=== PATIENT | female | born 1990 | race Two or more races ===

== ENCOUNTER 2020-08-20 19:57 | Emergency (ER) | payer SELFPAY ==
[2020-08-20] MEDS ORDERED: Sodium Chloride 0.9% 10 ML Syringe FLUSH PRN (20:32)
[2020-08-20] MEDS ORDERED: Metoclopramide 10 MG/2 ML SDV IVPUSH ONE (20:34)
[2020-08-20] MEDS ORDERED: diphenhydrAMINE 50 MG/ML SDV IVPUSH ONE (20:34)
[2020-08-20] MEDS ORDERED: Ketorolac 30 MG/ML SDV IVPUSH ONE (20:34)
[2020-08-20] MEDS ORDERED: Sodium Chloride 0.9% 1,000 ML IV ONE (20:34)
--- NOTE | 2020-08-20 20:41 | EDM.PDOC ---
ED HPI GENERAL MEDICAL PROBLEM - General Chief Complaint: Chest Pain Stated Complaint: CHEST PRESSURE/PAIN IN UPPER BACK Time Seen by Provider: 08/20/20 20:17 Source of Information: Reports: Patient, RN Notes Reviewed History Limitations: Reports: Language Barrier (pt is primarily portuguese speaking but is in room and does translate well) - History of Present Illness INITIAL COMMENTS - FREE TEXT/NARRATIVE: Patient is a 29-year-old female who presents to the ED for her left sided chest pressure, upper back pressure and migraine. Patient notes this has been going on for the past 2 weeks, she is complaining of left-sided chest pressure that seems to radiate down her arms at times. She also notes some feelings in her arm like it is numb and tingling. She got some mild nausea today. She has been using Motrin at home, this seems to help calm it down but does not take it away fully. thinks she is on control but she does not smoke, and she has no family history of heart issues. She does note she has a history of migraines, and had a pretty intense one roughly 4 years ago, for which she had a CT and it demonstrated no abnormalities. Patient also notes that she has a family history of tumors in their heads. She has no regular provider. She is a fairly healthy person otherwise. The patient states that the headache is more of a head pressure, and feels like her head want to explode when it is at its worst. She denies any fevers or chills, cough or shortness of breath, or any vomiting or diarrhea. 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 (see below) Chest Pain Score (Numeric/FACES): 4 Upper Back Pain Score (Numeric/FACES): 6 - Related Data Allergies Allergy/AdvReac Type Severity Reaction Status Date / Time No Known Allergies Allergy Verified 08/20/20 20:14 Home Meds: Home Meds Orphenadrine [Norflex] 100 mg PO BID PRN #20 tab 08/20/20 [Rx] Past Medical History Neurological History: Reports: Migraines Social & Family History - Tobacco Use Tobacco Use Status *Q: Never Tobacco User - Caffeine Use Caffeine Use: Reports: Coffee - Recreational Drug Use Recreational Drug Use: No ED ROS GENERAL - Review of Systems Review Of Systems: Comprehensive ROS is negative, except as noted in HPI. ED EXAM, GENERAL - Physical Exam Exam: See Below Exam Limited By: No Limitations General Appearance: Alert, WD/WN, No Apparent Distress Respiratory/Chest: No Respiratory Distress, Lungs Clear, Normal Breath Sounds, No Accessory Muscle Use, Chest Non-Tender Cardiovascular: Normal Peripheral Pulses, Regular Rate, Rhythm, No Murmur Peripheral Pulses: 2+: Radial (L), Radial (R) GI/Abdominal: Normal Bowel Sounds, Soft, Non-Tender, No Distention, No Mass Back Exam: Normal Inspection, Paraspinal Tenderness (point tenderness to the Left upper back, she states that this is the area of pain, small lump was palpated.) Extremities: Normal Inspection, Normal Capillary Refill Neurological: Alert, Oriented, Normal Cognition, No Motor/Sensory Deficits Psychiatric: Normal Affect, Normal Mood Skin Exam: Warm, Dry, Intact, Normal Color, No Rash #1 Interpretation EKG Date: 08/20/20 Time: 20:53 Rhythm: NSR Rate (Beats/Min): 75 Nancy: Normal P-Wave: Present QRS: Normal ST-T: Normal QT: Normal Comparison: NA - No Prior EKG EKG Interpretation Comments: No obvious ischemia or acute ST changes noted, reviewed by myself and Dr. Bingham. Course - Vital Signs Last Recorded V/S: Last Vital Signs Temp 97.7 F 08/20/20 20:20 Pulse 91 08/20/20 20:20 Resp 17 08/20/20 20:20 BP 134/87 08/20/20 20:20 Pulse Ox 100 08/20/20 20:20 - Orders/Labs/Meds Orders: Active Orders 24 hr Category Date Time Status EKG Documentation Completion [RC] STAT Care 08/20/20 20:32 Ordered Peripheral IV Care [RC] . DIRECTED Care 08/20/20 20:33 Ordered Chest 2V [CR] Stat Exams 08/20/20 20:33 Ordered Sodium Chloride 0.9% [Normal Saline] 1,000 ml Med 08/20/20 20:34 Active IV ONETIME Sodium Chloride 0.9% [Saline Flush] Med 08/20/20 20:32 Active 10 ml FLUSH ASDIRECTED PRN Peripheral IV Insertion Adult [OM.PC] Routine Oth 08/20/20 20:32 Ordered Medication Orders Sodium Chloride (Normal Saline) 1,000 mls @ 999 mls/hr IV ONETIME ONE Stop: 08/20/20 21:34 Last Admin: 08/20/20 20:44 Dose: 999 mls/hr Documented by: LILI Sodium Chloride (Saline Flush) 10 ml FLUSH ASDIRECTED PRN PRN Reason: Keep Vein Open Last Admin: 08/20/20 20:46 Dose: 10 ml Documented by: LILI Labs: Laboratory Tests 08/20/20 08/20/20 Range/Units 20:40 20:40 WBC 7.03 (3.98-10.04) K/mm3 RBC 4.62 (3.98-5.22) M/mm3 Hgb 14.0 (11.2-15.7) gm/dl Hct 41.4 (34.1-44.9) % MCV 89.6 (79.4-94.8) fl MCH 30.3 (25.6-32.2) pg MCHC 33.8 (32.2-35.5) g/dl RDW Std Deviation 41.5 (36.4-46.3) fL Plt Count 189 (182-369) K/mm3 MPV 11.0 (9.4-12.3) fl Neut % (Auto) 60.7 (34.0-71.1) % Lymph % (Auto) 32.6 (19.3-51.7) % Rich % (Auto) 6.1 (4.7-12.5) % Eos % (Auto) 0.3 L (0.7-5.8) Baso % (Auto) 0.3 (0.1-1.2) % Neut # (Auto) 4.27 (1.56-6.13) K/mm3 Lymph # (Auto) 2.29 (1.18-3.74) K/mm3 Rich # (Auto) 0.43 H (0.24-0.36) K/mm3 Eos # (Auto) 0.02 L (0.04-0.36) K/mm3 Baso # (Auto) 0.02 (0.01-0.08) K/mm3 Sodium 141 (136-145) mEq/L Potassium 3.6 (3.5-5.1) mEq/L Chloride 104 (98-107) mEq/L Carbon Dioxide 27 (21-32) mEq/L Anion Gap 13.6 (5-15) BUN 18 (7-18) mg/dL Creatinine 0.8 (0.55-1.02) mg/dL Est Cr Clr Drug Dosing 92.53 mL/min Estimated GFR (MDRD) > 60 (>60) mL/min BUN/Creatinine Ratio 22.5 H (14-18) Glucose 82 (74-106) mg/dL Calcium 9.2 (8.5-10.1) mg/dL Magnesium 2.1 (1.8-2.4) mg/dl Total Bilirubin 0.3 (0.2-1.0) mg/dL AST 16 (15-37) U/L ALT 24 (14-59) U/L Alkaline Phosphatase 93 (46-116) U/L Total Protein 8.3 H (6.4-8.2) g/dl Albumin 4.0 (3.4-5.0) g/dl Globulin 4.3 gm/dL Albumin/Globulin Ratio 0.9 L (1-2) Meds: Medications Generic Name Dose Route Start Last Admin Trade Name Freq PRN Reason Stop Dose Admin Sodium Chloride 1,000 mls @ 999 mls/hr 08/20/20 20:34 08/20/20 20:44 Normal Saline IV 08/20/20 21:34 999 mls/hr ONETIME ONE Administration Sodium Chloride 10 ml 08/20/20 20:32 08/20/20 20:46 Saline Flush FLUSH 10 ml ASDIRECTED PRN Administration Keep Vein Open Discontinued Medications Generic Name Dose Route Start Last Admin Trade Name Kyleq PRN Reason Stop Dose Admin Diphenhydramine HCl 25 mg 08/20/20 20:34 08/20/20 20:44 Benadryl IVPUSH 08/20/20 20:35 25 mg ONETIME ONE Administration Ketorolac Tromethamine 30 mg 08/20/20 20:34 08/20/20 20:46 Toradol IVPUSH 08/20/20 20:35 30 mg ONETIME ONE Administration Metoclopramide HCl 10 mg 08/20/20 20:34 08/20/20 20:45 Reglan IVPUSH 08/20/20 20:35 10 mg ONETIME ONE Administration - Re-Assessments/Exams Free Text/Narrative Re-Assessment/Exam: 08/20/20 20:43 Patient presents to the ED for the evaluation of her left chest pressure, and left upper back pain along with her headache. We will get a EKG, chest x-ray, basic labs, give her some medications for her headache. I do suspect that her left upper back issue has been causing the pressure in her chest. And then she has had a subsequent migraine to go along with this. 08/20/20 21:27 The patient's work-up is essentially normal, I do suspect that the patient's chest pressure has stemmed from her left upper back pain. She states that the headache is better with the medications given. We will discharge her home with general conservative recommendations and a prescription for Norflex as I do believe there is a possibility of muscle tension causing issues regarding her headache and upper back issues. Departure - Departure Time of Disposition: 21:28 Disposition: Home, Self-Care 01 Condition: Good Clinical Impression: Upper back pain on left side Headache Qualifiers: Headache type: tension-type Headache chronicity pattern: acute headache Intractability: not intractable Qualified Code(s): G44.209 - Tension-type headache, unspecified, not intractable - Discharge Information *PRESCRIPTION DRUG MONITORING PROGRAM REVIEWED*: No *COPY OF PRESCRIPTION DRUG MONITORING REPORT IN PATIENT [place]: No Instructions: Back Injury Prevention Referrals: PCP,None [Primary Care Provider] - Forms: ED Department Discharge Additional Instructions: You have been evaluated in the ED for your upper back pain, left chest pressure, and headache. Your x-ray demonstrated no acute abnormalities to suggest a possible pneumonia or other worrisome diagnoses. Your EKG was within normal limits, and your laboratory evaluation also was within normal limits. Please use ice/heat as tolerated to your back. I would recommend you follow-up with a chiropractor come Sunday morning, or if you can find one open tomorrow morning for further evaluation and management. You were given a prescription for muscle relaxers, please use 1 tab 2 times a day as needed for further muscle spasms. This was electronically prescribed to the [facility] located in [facility]. You may take Tylenol 500 mg or ibuprofen 600mg q6 hrs for pain relief. Please do so until you have a tolerable level of pain with activity. Do not exceed 4000mg Tylenol or 3200mg ibuprofen in a 24 hour time period. Please return to ED if your symptoms should change or worsen. Sepsis Event Note (ED) - Evaluation Sepsis Screening Result: No Definite Risk - Focused Exam Vital Signs: Vital Signs Temp Pulse Resp BP Pulse Ox 08/20/20 20:20 97.7 F 91 17 134/87 100 - My Orders Last 24 Hours: My Active Orders 08/20/20 20:32 EKG Documentation Completion [RC] STAT Sodium Chloride 0.9% [Saline Flush] 10 ml FLUSH ASDIRECTED PRN Peripheral IV Insertion Adult [OM.PC] Routine 08/20/20 20:33 Peripheral IV Care [RC] . DIRECTED Chest 2V [CR] Stat 08/20/20 20:34 Sodium Chloride 0.9% [Normal Saline] 1,000 ml IV ONETIME - Assessment/Plan Last 24 Hours: My Active Orders 08/20/20 20:32 EKG Documentation Completion [RC] STAT Sodium Chloride 0.9% [Saline Flush] 10 ml FLUSH ASDIRECTED PRN Peripheral IV Insertion Adult [OM.PC] Routine 08/20/20 20:33 Peripheral IV Care [RC] . DIRECTED Chest 2V [CR] Stat 08/20/20 20:34 Sodium Chloride 0.9% [Normal Saline] 1,000 ml IV ONETIME
--- NOTE | 2020-08-23 10:48 | CR ---
PROCEDURE INFORMATION: Exam: XR Chest, 2 Views Exam date and time: 08/20/2020 8:46 PM Age: 29 years old Clinical indication: Pain; Patient HX: Chest pressure onset few hours prior TECHNIQUE: Imaging protocol: XR of the chest Views: 2 views. COMPARISON: No relevant prior studies available. FINDINGS: Airway: The airways are patent. Lungs: The lungs are clear. Pleural space: No pleural effusions or pneumothorax. Heart/Mediastinum: The cardiomediastinal silhouette is normal. Bones/joints: The bones are normal. IMPRESSION: Normal chest x-ray without discrete findings to explain the patient's chest pressure. Thank you for allowing us to participate in the care of your patient. Dictated and Authenticated by: El Todd MD 08/20/2020 10:02 PM Central Time ([place] & [place]) [place]
== END 2020-08-20 21:44 | disposition home or self-care (01) ==
LOC: JD.ED 19:57
DX: M54.6 Pain in thoracic spine (principal); G44.209 Tension-type headache, unspecified, not intractable; R07.89 Other chest pain
CPT/HCPCS: 36415; 71046; 80053; 83735; 85025; 93005; 96374; 96375; 99284; J1200; J1885; J2765; J7030; 93010

== ENCOUNTER 2022-05-15 22:06 | Emergency (ER) | payer SELFPAY | END 2022-05-16 02:10 | disposition home or self-care (01) | LOC: JD.ED 22:06 | DX: R10.32 Left lower quadrant pain (principal); Z79.899 Other long term (current) drug therapy | CPT/HCPCS: 99282; 99283 ==

== ENCOUNTER 2024-01-01 16:55 | Emergency (ER) | payer SELFPAY ==
[2024-01-01 18:00] LABS: BASOPHILS PERCENT AUTO 0.7 % (0.0-1.0); EOSINOPHILS PERCENT AUTO 0.7 % (0.0-6.0); HEMATOCRIT 40.5 % (37.0-47.0); HEMOGLOBIN 13.7 gm/dl (12.0-16.0); IMMATURE GRAN ABSOLUTE AUTO 0.01 K/mm3 (0.00-0.05); IMMATURE GRAN PERCENT AUTO 0.2 % (0.0-0.4); LYMPHOCYTES ABSOLUTE AUTO 1.2 K/mm3 (1.0-4.8); LYMPHOCYTES PERCENT AUTO 26.6 % (24.0-44.0); MEAN CORPUSCULAR HEMOGLOBIN 31.6 pg (28.0-32.0); MEAN CORPUSCULAR HGB CONC 33.8 g/dl (32.0-36.0); MEAN CORPUSCULAR VOLUME 93.3 fl (83.0-99.0); MEAN PLATELET VOLUME 10.8 fl (9.4-12.3); MONOCYTES ABSOLUTE AUTO 0.3 K/mm3 (0.0-0.8); MONOCYTES PERCENT AUTO 7.2 % (0.0-8.0); NEUTROPHILS PERCENT AUTO 64.6 % (41.0-71.0); PLATELET COUNT,PLT 157 K/mm3 (150-400); RED BLOOD CELL COUNT 4.34 M/mm3 (4.10-5.30); WHITE BLOOD CELL COUNT,WBC 4.59 K/mm3 (3.9-11.3)
[2024-01-01] MEDS: diphenhydrAMINE 50 MG/ML SDV IVPUSH ONE (18:01)
[2024-01-01] MEDS: Ketorolac 30 MG/ML SDV IVPUSH ONE (18:01)
[2024-01-01] MEDS: Ondansetron 4 MG/2 ML SDV IVPUSH ONE (18:01)
[2024-01-01] MEDS: Sodium Chloride 0.9% 10 ML Syringe FLUSH PRN (18:02)
[2024-01-01] MEDS: Sodium Chloride 0.9% 1,000 ML IV STA (18:02)
[2024-01-01] MEDS: Cyclobenzaprine 10 MG Tab PO ONE (18:02)
[2024-01-01 18:32] LABS: ALBUMIN 4.2 g/dl (3.4-5.0); ANION GAP 16.2 (5-15); BILIRUBIN TOTAL 0.3 mg/dL (0.2-1.0); BUN/CREATININE RATIO 12.9 (14-18); C-REACTIVE PROTEIN 0.17 mg/dL (<0.30); CALCIUM 9.1 mg/dL (8.5-10.1); CREATININE 0.7 mg/dL (0.55-1.02); EST CRCL DRUG DOSING (CG) 106.01 mL/min; POTASSIUM,K 4.2 mEq/L (3.5-5.1); PROTEIN TOTAL,TP 8.4 g/dl (6.4-8.2); TSH 1.419 uIU/mL (0.358-3.74)
== END 2024-01-01 19:43 | disposition home or self-care (01) ==
LOC: JD.ED 16:55
DX: G44.209 Tension-type headache, unspecified, not intractable (principal); M54.2 Cervicalgia
CPT/HCPCS: 36415; 80053; 84443; 84703; 85025; 86140; 96374; 96375; 99284; A9270; J1200; J1885; J2405; J3490; J7030

== ENCOUNTER 2024-05-09 14:16 | Emergency (ER) | payer SELFPAY ==
[2024-05-09] MEDS: Dextrose 5%-0.9% NaCl 1,000 ML IV SCH (16:31)
[2024-05-09] MEDS: Ketorolac 30 MG/ML SDV IVPUSH ONE (16:31)
[2024-05-09] MEDS: diphenhydrAMINE 50 MG/ML SDV IVPUSH ONE (16:32)
[2024-05-09] MEDS: Metoclopramide 10 MG/2 ML SDV IVPUSH ONE (16:33)
[2024-05-09] MEDS: HYDROmorphone 1 MG/ML Syringe IVPUSH ONE (16:34)
[2024-05-09 17:31] LABS: BASOPHILS PERCENT AUTO 0.8 % (0.0-1.0); EOSINOPHILS PERCENT AUTO 0.3 % (0.0-6.0); HEMATOCRIT 38.2 % (37.0-47.0); HEMOGLOBIN 12.5 gm/dl (12.0-16.0); LYMPHOCYTES ABSOLUTE AUTO 1.2 K/mm3 (1.0-4.8); LYMPHOCYTES PERCENT AUTO 30.5 % (24.0-44.0); MEAN CORPUSCULAR HEMOGLOBIN 31.3 pg (28.0-32.0); MEAN CORPUSCULAR HGB CONC 32.7 g/dl (32.0-36.0); MEAN CORPUSCULAR VOLUME 95.7 fl (83.0-99.0); MEAN PLATELET VOLUME 11.4 fl (9.4-12.3); MONOCYTES ABSOLUTE AUTO 0.3 K/mm3 (0.0-0.8); MONOCYTES PERCENT AUTO 7.8 % (0.0-8.0); NEUTROPHILS ABSOLUTE AUTO 2.4 K/mm3 (1.8-7.7); NEUTROPHILS PERCENT AUTO 60.6 % (41.0-71.0); PLATELET COUNT,PLT 164 K/mm3 (150-400); RED BLOOD CELL COUNT 3.99 M/mm3 (4.10-5.30); WHITE BLOOD CELL COUNT,WBC 3.97 K/mm3 (3.9-11.3)
[2024-05-09 17:59] LABS: ALBUMIN 3.2 g/dl (3.4-5.0); ANION GAP 9.9 (5-15); BILIRUBIN TOTAL 0.2 mg/dL (0.2-1.0); CALCIUM 8.4 mg/dL (8.5-10.1); CREATININE 0.8 mg/dL (0.55-1.02); EST CRCL DRUG DOSING (CG) 78.37 mL/min; POTASSIUM,K 4.9 mEq/L (3.5-5.1); PROTEIN TOTAL,TP 6.5 g/dl (6.4-8.2)
[2024-05-09 18:43] LABS: CHOLESTEROL HDL 59 mg/dL (40-59); CHOLESTEROL LDL DIRECT 77 mg/dL (<100); CHOLESTEROL TOTAL 151 mg/dL (<200)
[2024-05-09 18:44] LABS: TSH 7.111 uIU/mL (0.358-3.74)
[2024-05-09] MEDS: LORazepam 2 MG/ML SDV IVPUSH ONE (19:21)
[2024-05-09] MEDS: ClonazePAM 1 MG Tab PO ONE (20:25)
== END 2024-05-09 20:31 | disposition home or self-care (01) ==
LOC: JD.ED 14:16
DX: G43.909 Migraine, unspecified, not intractable, without status migrainosus (principal); F41.0 Panic disorder [episodic paroxysmal anxiety]; F41.1 Generalized anxiety disorder; E03.9 Hypothyroidism, unspecified; F51.04 Psychophysiologic insomnia; M54.6 Pain in thoracic spine; Z79.890 Hormone replacement therapy; Z79.899 Other long term (current) drug therapy
CPT/HCPCS: 36415; 80053; 82465; 82947; 83036; 83718; 83721; 84443; 85025; 96361; 96374; 96375; 99284; A9270; J1170; J1200; J1885; J2060; J2765; J7042

== ENCOUNTER 2024-11-18 10:08 | Emergency (ER) | payer OTHER ==
[2024-11-18 11:10] LABS: BASOPHILS PERCENT AUTO 0.4 % (0.0-1.0); HEMATOCRIT 45.1 % (37.0-47.0); IMMATURE GRAN ABSOLUTE AUTO 0.01 K/mm3 (0.00-0.05); IMMATURE GRAN PERCENT AUTO 0.2 % (0.0-0.4); LYMPHOCYTES ABSOLUTE AUTO 0.8 K/mm3 (1.0-4.8); LYMPHOCYTES PERCENT AUTO 17.4 % (24.0-44.0); MEAN CORPUSCULAR HEMOGLOBIN 31.1 pg (28.0-32.0); MEAN CORPUSCULAR HGB CONC 33.3 g/dl (32.0-36.0); MEAN CORPUSCULAR VOLUME 93.6 fl (83.0-99.0); MEAN PLATELET VOLUME 10.9 fl (9.4-12.3); MONOCYTES ABSOLUTE AUTO 0.2 K/mm3 (0.0-0.8); MONOCYTES PERCENT AUTO 4.6 % (0.0-8.0); NEUTROPHILS ABSOLUTE AUTO 3.7 K/mm3 (1.8-7.7); NEUTROPHILS PERCENT AUTO 77.4 % (41.0-71.0); PLATELET COUNT,PLT 194 K/mm3 (150-400); RED BLOOD CELL COUNT 4.82 M/mm3 (4.10-5.30); WHITE BLOOD CELL COUNT,WBC 4.78 K/mm3 (3.9-11.3)
[2024-11-18] MEDS: Sodium Chloride 0.9% 1,000 ML IV ONE (11:37)
[2024-11-18] MEDS: Metoclopramide 10 MG/2 ML SDV IVPUSH ONE (11:37)
[2024-11-18 11:38] LABS: APPEARANCE,URINE CLEAR (Clear); BILIRUBIN,URINE NEGATIVE (Negative); COLOR,URINE LIGHT YELLOW (Yellow); GLUCOSE,URINE NEGATIVE (Negative); KETONES,URINE NEGATIVE (Negative); LEUKOCYTE ESTERASE,URINE NEGATIVE (Negative); NITRITE,URINE NEGATIVE (Negative); OCCULT BLOOD,URINE NEGATIVE (Negative); PROTEIN,URINE NEGATIVE (Negative); UROBILINOGEN,URINE 0.2 (0.2-1.0)
[2024-11-18 11:40] LABS: A/G RATIO 1.1 (1-2); ALANINE AMINOTRANSFERASE,ALT 26 U/L (14-59); ALBUMIN 4.5 g/dl (3.4-5.0); ALKALINE PHOSPHATASE 62 U/L (46-116); ANION GAP 13.4 (5-15); ASPARTATE AMNIOTRANSFERASE,AST 18 U/L (15-37); BILIRUBIN TOTAL 0.4 mg/dL (0.2-1.0); BLOOD UREA NITROGEN,BUN 11 mg/dL (7-18); BUN/CREATININE RATIO 13.8 (14-18); CALCIUM 9.8 mg/dL (8.5-10.1); CARBON DIOXIDE,CO2 29 mEq/L (21-32); CHLORIDE,CL 104 mEq/L (98-107); CREATININE 0.8 mg/dL (0.55-1.02); EST CRCL DRUG DOSING (CG) 77.63 mL/min; ESTIMATED GFR 98 mL/min (>60); GLUCOSE RANDOM 108 mg/dL (70-99); POTASSIUM,K 4.4 mEq/L (3.5-5.1); PROTEIN TOTAL,TP 8.8 g/dl (6.4-8.2); SODIUM,NA 142 mEq/L (136-145)
[2024-11-18 11:44] LABS: TROPONIN I HIGH SENSITIVITY < 4 pg/mL (<=51)
[2024-11-18 11:48] LABS: BARBITURATE SCREEN,URINE NEGATIVE ({null, CUTOFF=200}); BENZODIAZEPINES SCREEN,URINE NEGATIVE ({null, CUTOFF=150}); BUPRENORPHINE SCREEN,URINE NEGATIVE ({null, CUTOFF=10}); METHADONE SCREEN, URINE NEGATIVE ({null, CUTOFF=200}); METHAMPHETAMINES SCREEN, URINE NEGATIVE ({null, CUTOFF=500}); OXYCODONE SCREEN,URINE NEGATIVE ({null, CUT0FF=100}); THC SCREEN,URINE 20 NG/ML NEGATIVE ({null, CUTOFF=50})
[2024-11-18 11:49] LABS: AMPHETAMINES SCREEN, URINE NEGATIVE ({null, CUTOFF=500})
== END 2024-11-18 13:30 | disposition home or self-care (01) ==
LOC: JD.ED 10:08
DX: R55 Syncope and collapse (principal); Z79.890 Hormone replacement therapy; Z79.899 Other long term (current) drug therapy
CPT/HCPCS: 36415; 71045; 80053; 80306; 81003; 81025; 83735; 84484; 85025; 93005; 93246; 96361; 96374; 99285; J2765; J7030

== ENCOUNTER 2024-12-08 19:17 | Emergency (ER) | payer OTHER ==
[2024-12-08 19:43] LABS: BASOPHILS PERCENT AUTO 0.5 % (0.0-1.0); EOSINOPHILS ABSOLUTE AUTO 0.1 K/mm3 (0.0-0.4); EOSINOPHILS PERCENT AUTO 0.8 % (0.0-6.0); HEMATOCRIT 42.8 % (37.0-47.0); HEMOGLOBIN 14.4 gm/dl (12.0-16.0); IMMATURE GRAN ABSOLUTE AUTO 0.02 K/mm3 (0.00-0.05); IMMATURE GRAN PERCENT AUTO 0.3 % (0.0-0.4); LYMPHOCYTES PERCENT AUTO 31.6 % (24.0-44.0); MEAN CORPUSCULAR HEMOGLOBIN 31.5 pg (28.0-32.0); MEAN CORPUSCULAR HGB CONC 33.6 g/dl (32.0-36.0); MEAN CORPUSCULAR VOLUME 93.7 fl (83.0-99.0); MEAN PLATELET VOLUME 10.7 fl (9.4-12.3); MONOCYTES ABSOLUTE AUTO 0.6 K/mm3 (0.0-0.8); MONOCYTES PERCENT AUTO 8.9 % (0.0-8.0); NEUTROPHILS ABSOLUTE AUTO 3.7 K/mm3 (1.8-7.7); NEUTROPHILS PERCENT AUTO 57.9 % (41.0-71.0); PLATELET COUNT,PLT 174 K/mm3 (150-400); RED BLOOD CELL COUNT 4.57 M/mm3 (4.10-5.30)
[2024-12-08] MEDS: ALPRAZolam 0.5 MG Tab PO ONE (19:46)
[2024-12-08 20:02] LABS: INR 1.03; PROTHROMBIN TIME 10.9 SECONDS (9.7-12.0)
[2024-12-08 20:09] LABS: ALBUMIN 4.2 g/dl (3.4-5.0); ANION GAP 10.9 (5-15); BILIRUBIN TOTAL 0.2 mg/dL (0.2-1.0); CALCIUM 9.2 mg/dL (8.5-10.1); CREATININE 0.8 mg/dL (0.55-1.02); EST CRCL DRUG DOSING (CG) 81.19 mL/min; MAGNESIUM 2.1 mg/dL (1.8-2.4); POTASSIUM,K 3.9 mEq/L (3.5-5.1); PROTEIN TOTAL,TP 8.3 g/dl (6.4-8.2)
[2024-12-08 20:34] LABS: BARBITURATE SCREEN,URINE NEGATIVE (CUTOFF=200); BENZODIAZEPINES SCREEN,URINE NEGATIVE (CUTOFF=150); BUPRENORPHINE SCREEN,URINE NEGATIVE (CUTOFF=10); METHADONE SCREEN, URINE NEGATIVE (CUTOFF=200); METHAMPHETAMINES SCREEN, URINE NEGATIVE (CUTOFF=500); OXYCODONE SCREEN,URINE NEGATIVE (CUT0FF=100); THC SCREEN,URINE 20 NG/ML NEGATIVE (CUTOFF=50)
[2024-12-08 20:35] LABS: AMPHETAMINES SCREEN, URINE NEGATIVE (CUTOFF=500)
== END 2024-12-08 21:18 | disposition home or self-care (01) ==
LOC: JD.ED 19:17
DX: R07.89 Other chest pain (principal); R00.0 Tachycardia, unspecified; F41.9 Anxiety disorder, unspecified; Z79.899 Other long term (current) drug therapy
CPT/HCPCS: 36415; 71045; 80053; 80306; 81025; 82550; 83690; 83735; 83880; 84484; 85025; 85610; 93005; 99285; A9270; 93010; 99283